=== PATIENT | male | born 1995 | race Caucasian/White ===

== ENCOUNTER 2018-02-14 15:08 | Emergency (ER) | payer OTHER ==
--- NOTE | 2018-02-14 17:55 | ED Physician Documentation ---
History of Present Illness - Stated complaint Stated Complaint: LIP LAC - Chief complaint Chief Complaint: Laceration - History obtained from History obtained from: Patient - Additonal information Additional information: The patient is a 22-year-old [employer] male who presents with upper lip laceration. 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 He denies any other injuries. His tetanus status is up-to-date. Review of Systems Eyes: denies: Irritation Throat: denies: Dental pain / toothache Respiratory: denies: Dyspnea GI: denies: Nausea, Vomiting Skin: reports: Laceration (s) Musculoskeletal: denies: Neck pain Neurologic: denies: Headache PD PAST MEDICAL HISTORY - Past Medical History Past Medical History: No - Past Surgical History Past Surgical History: Yes - Present Medications Home Medications: Ambulatory Orders Medication Instructions Recorded Confirmed No Known Home Medications [No 02/14/18 02/14/18 Known Home Medications] - Allergies Allergies/Adverse Reactions: Allergies Allergy/AdvReac Type Severity Reaction Status Date / Time No Known Drug Allergies Allergy Verified 02/14/18 15:33 - Social History Does the pt smoke?: Yes Smoking Status: Current every day smoker Does the pt drink ETOH?: Yes Does the pt have substance abuse?: No - Immunizations Immunizations are current?: Yes PD ED PE NORMAL - Vitals Vital signs reviewed: Yes (normal) - General General: Alert and oriented X 3, Well developed/nourished - HEENT HEENT: EOMI, Dentition benign, Other (There is a 0.5 cm laceration of the upper lip, crossing the vermilion border. Buccal mucosa is intact, and there is no dental injury.) - Neck Neck: No bony TTP - Cardiac Cardiac: RRR - Respiratory Respiratory: No respiratory distress - Derm Derm: No rash - Neuro Neuro: Alert and oriented X 3, Normal speech Results - Vitals Vitals: Oxygen O2 Source Room air Procedures - Laceration (location) upper lip Length in cm: 0.5 Wound type: Linear, Into subcut fat, Clean Neurovascular status: Sensory intact, Vascular intact Anesthesia: Lidocaine 1% with epi Wound Preparation: Hibiclens, Wound explored. No: FB identified Skin layer closure: Nylon, Interrupted, Size #-0 - enter number (5), Sutures - enter # (2) Other: Patient tolerated well, No complications, Neurovascular intact, Tetanus UTD Complexity: Simple PD MEDICAL DECISION MAKING - ED course Complexity details: d/w patient ED course: The patient presented with lip laceration which was repaired with 5-0 nylon simple sutures after local anesthetic and thorough cleaning of the wound. I discussed with him the expected course of healing, timing for suture removal, as well as potentially worrisome signs or symptoms that should prompt reevaluation in the emergency department. - Sepsis Event Vital Signs: Oxygen O2 Source Room air Departure - Departure Disposition: 01 Home, Self Care Clinical Impression: Lip laceration Qualifiers: Encounter type: initial encounter Qualified Code(s): S01.511A - Laceration without foreign body of lip, initial encounter Condition: Stable Instructions: ED Laceration All Follow-Up: EDWIN CAGE MD [Primary Care Provider] - Comments: Keep the wound clean. You can use Tylenol or ibuprofen if needed for discomfort. Follow-up for suture removal in about 7 days. Return to the emergency department if you develop any sign of infection, or otherwise worsening symptoms. Discharge Date/Time: 02/14/18 18:11
[2018-02-14 17:58] VITALS: BP 141/82
== END 2018-02-14 18:11 | disposition home or self-care (01) ==
LOC: ED 15:08
DX: S01.511A Laceration without foreign body of lip, initial encounter (principal); W20.8XXA Other cause of strike by thrown, projected or falling object, initial encounter; Y92.135 Garage on military base as the place of occurrence of the external cause; Y99.1 Military activity; F17.200 Nicotine dependence, unspecified, uncomplicated
CPT/HCPCS: 12011; 99283

== ENCOUNTER 2018-09-12 14:51 | Emergency (ER) | payer OTHER ==
--- NOTE | 2018-09-12 15:27 | ED Physician Documentation ---
PD HPI LOWER EXT INJURY - Stated complaint Stated Complaint: R ANKLE INJ - Chief complaint Chief Complaint: Ext Problem - History obtained from History obtained from: Patient - History of Present Illness PD HPI LOW EXT INJURY LOCATION: Right (Injured his right ankle and foot 6 days ago while snowboarding. He thinks it everted and plantar flexed forcefully during a fall. No other injuries but has persistent pain.) Review of Systems Constitutional: reports: Reviewed and negative Cardiac: reports: Reviewed and negative Respiratory: reports: Reviewed and negative PD PAST MEDICAL HISTORY - Past Medical History Past Medical History: No - Past Surgical History Past Surgical History: Yes - Present Medications Home Medications: Ambulatory Orders Medication Instructions Recorded Confirmed Ibuprofen [Motrin] 800 mg PO Q8H PRN #30 tablet 09/12/18 - Allergies Allergies/Adverse Reactions: Allergies Allergy/AdvReac Type Severity Reaction Status Date / Time No Known Drug Allergies Allergy Verified 09/12/18 15:18 - Social History Does the pt smoke?: Yes Smoking Status: Current every day smoker Does the pt drink ETOH?: Yes Does the pt have substance abuse?: No - Immunizations Immunizations are current?: Yes PD ED PE NORMAL - Vitals Vital signs reviewed: Yes - General General: Alert and oriented X 3, No acute distress - Extremities Extremities: Other (Right ankle and foot: He is mildly tender over the medial calcaneus and medial malleolus but severely tender over the lateral malleolus. There is some dependent bruising in the foot but no other foot tenderness. No proximal fibular tenderness.) - Neuro Neuro: Alert and oriented X 3, Normal speech Results - Vitals Vitals: Vital Signs - 24 hr 09/12/18 15:15 Temperature 35.7 C L Heart Rate 95 Respiratory 18 Rate Blood Pressure 141/86 H O2 Saturation 97 Oxygen O2 Source Room air - Rads (name of study) R ankle/Rcalcaneus Radiology: EMP read contemporaneously (normal) Departure - Departure Disposition: 01 Home, Self Care Clinical Impression: Right ankle sprain Qualifiers: Encounter type: initial encounter Involved ligament of ankle: posterior talofibular ligament Qualified Code(s): S93.491A - Sprain of other ligament of right ankle, initial encounter Condition: Good Record reviewed to determine appropriate education?: Yes Instructions: ED Sprain Ankle W X Ray Prescriptions: Ibuprofen [Motrin] 800 mg PO Q8H PRN #30 tablet PRN Reason: PAIN &/OR FEVER Comments: [place] not [place]. Return for new or worsening symptoms. Your blood pressure was elevated today on check into the emergency department. This does not mean that you have hypertension, it is a common phenomenon to come to the emergency department and have elevated blood pressure. I recommend that you see your primary care physician within the week to have it rechecked when you are feeling better.
--- NOTE | 2018-09-12 16:09 | XRAY Report ---
Reason: ankle/foot inj Procedure Date: 09/12/2018 Accession Number: [id number] / [id number] Procedure: XR - Ankle 3 View RT CPT Code: FULL RESULT: EXAM: RIGHT ANKLE RADIOGRAPHY EXAM DATE: 09/12/2018 03:54 PM. CLINICAL HISTORY: Ankle/foot pain since snowboarding injury 6 days ago. COMPARISON: CALCANEUS RT 09/12/2018 3:42 PM. TECHNIQUE: 3 views. FINDINGS: Bones: Normal. No fractures or bone lesions. Joints: Normal. No effusion. No subluxations. The ankle mortise is normally aligned. Soft Tissues: Unremarkable. IMPRESSION: Normal ankle radiography. [facility]
--- NOTE | 2018-09-12 16:10 | XRAY Report ---
Reason: ankle/foot inj Procedure Date: 09/12/2018 Accession Number: [id number] / [id number] Procedure: XR - Calcaneus RT CPT Code: FULL RESULT: EXAM: RIGHT CALCANEUS RADIOGRAPHY EXAM DATE: 09/12/2018 03:54 PM. CLINICAL HISTORY: Ankle/foot pain since snowboarding injury 6 days ago. COMPARISON: None. TECHNIQUE: 2 views. FINDINGS: Bones: Normal. No fractures or bone lesions. Joints: Normal. No subluxations. Soft Tissues: Unremarkable. IMPRESSION: Normal calcaneus radiography. [facility]
[2018-09-12 16:31] VITALS: BP 130/87
== END 2018-09-12 16:30 | disposition home or self-care (01) ==
LOC: ED 14:51
DX: S93.491A Sprain of other ligament of right ankle, initial encounter (principal); V00.311A Fall from snowboard, initial encounter; Y93.23 Activity, snow (alpine) (downhill) skiing, snowboarding, sledding, tobogganing and snow tubing; R03.0 Elevated blood-pressure reading, without diagnosis of hypertension; F17.200 Nicotine dependence, unspecified, uncomplicated
CPT/HCPCS: 99283

== ENCOUNTER 2021-11-23 13:14 | Outpatient (CLI) | payer OTHER ==
--- NOTE | 2021-11-23 16:00 | XRAY Report ---
PROCEDURE: Knee 4 View RT INDICATIONS: RIGHT KNEE PAIN TECHNIQUE: 4 views of the right knee(s) were acquired. COMPARISON: None. FINDINGS: Bones: No fractures or dislocations. No suspicious bony lesions. Soft tissues: Small suprapatellar joint effusion is seen. No suspicious soft tissue calcifications. IMPRESSION: No right knee fracture or dislocation. Small joint effusion. Reviewed by: Bob Shine MD on 11/23/2021 3:58 PM PDT Approved by: Bob Shine MD on 11/23/2021 3:58 PM PDT Station ID: [id number]
== END 2021-11-23 23:59 | disposition home or self-care (01) ==
LOC: DI.WOS 13:14
PROVIDERS: ATTEND Physician Assistant
DX: M25.461 Effusion, right knee (principal); M25.561 Pain in right knee